=== PATIENT | male | born 1950 | race Caucasian/White ===

== ENCOUNTER 2017-10-20 13:47 | Inpatient (IN) | payer MEDICARE ==
[~2017-10-20] VITALS: Ht 180.3 cm; Wt 113.4 kg
--- NOTE | ~2017-10-20 | CN ---
PATIENT NAME:VALERIO ESPINAL MEDICAL RECORD: [id number] : 46 LOCATION:D[id number] ADMIT DATE: 10/20/17 ACCOUNT: [id number] CONSULTING PHYSICIAN: MAYKEL DUMONT MD REFERRING PHYSICIAN: YAZMIN NOYOLA MD DATE OF CONSULTATION: 10/24/2017 HISTORY OF PRESENT ILLNESS: A 67-year-old gentleman with history of atrial fibrillation, hypertension, admitted with a pelvic abscess status post drainage, has a history of atrial fibrillation, had recurrence of this postoperatively. We are asked to see him concerning his cardiovascular status. PAST MEDICAL HISTORY: Includes; 1. History of hypertension. 2. Atrial fibrillation. 3. BPH. 4. Dyslipidemia. 5. Anxiety with depression. ALLERGIES: CRESTOR, NIASPAN, AND LEVAQUIN. MEDICATIONS: Typically include omeprazole 20 mg p.o. q. day, Celexa 20 q. day, Betapace 80 b.i.d., atorvastatin 20 q. day, lisinopril 20 q. day, Flomax 0.4 q. day. SOCIAL HISTORY: He is a nonsmoker, nondrinker. Typically, he is able to take care of his ADLs. No set exercise program. REVIEW OF SYSTEMS: The patient reports easy bruising but reports no swollen glands. The patient reports no fever, no night sweats, no significant weight gain, no significant weight loss. No significant exercise tolerance. The patient reports no dry eyes, no irritation, no vision change. Patient reports no difficulty hearing and no ear pain. Patient reports no frequent nose bleeds or nose and sinus problems. Patient reports on arm pain on exertion. No shortness of breath while lying down. No history of heart murmur. Patient reports no cough, no wheezing or coughing up blood. Patient reports no abdominal pain, no vomiting. Normal appetite. No diarrhea and not vomiting blood. No nausea and no constipation. Patient reports no incontinence. No difficulty urinating. No hematuria. No increased frequency. Patient reports no muscle aches. No weakness, no arthralgias, no back pain. No swelling of the extremities. Patient reports no abnormal mole, no jaundice, no rashes. Reports no loss of consciousness. No weakness and no numbness. No seizures, dizziness, or headaches. The patient reports no depression, no sleep disturbance, feeling safe in a relationship and no alcohol abuse. Patient reports on fatigue. Reports no runny nose or sinus pressure. No itching, no hives, and no frequent sneezing. PHYSICAL EXAMINATION: GENERAL: Pleasant gentleman, in no acute distress. VITAL SIGNS: Blood pressure 130/86, pulse 135 and irregular. HEENT: Normocephalic, atraumatic. NECK: No bruits were noted. HEART: Showed regular rates around 110-120. II/ systolic ejection murmur. LUNGS: Good air excursion. ABDOMEN: Soft, nontender. CONSULT REPORT [id number] VALERIO ESPINAL EXTREMITIES: Pulses are well preserved. There is no edema. NEUROLOGIC: Grossly intact. DIAGNOSTIC DATA: ECG shows atrial fibrillation, no ST-T changes. IMPRESSION: Atrial fibrillation with RVR, not surprising given current infection. Postop, increased catecholamine drive, etc. We will add digoxin for assistance in rate control. Further recommendations based on clinical course. TRANSINT:[id number] Voice Confirmation ID: [id number] DOCUMENT ID: [id number] MAYKEL DUMONT MD at 1225 CC: [id number] DICTATION DATE: 10/24/17830 FINGERPRINT CLASSIFIER: 10/24/17 0943 ADM IN [place] [id number] [place] [address]
--- NOTE | ~2017-10-20 | OP ---
PATIENT NAME: VALERIO ESPINAL MEDICAL RECORD: [id number] :46 LOCATION:D[id number] ADMISSION DATE:10/20/17 SURGEON: ADDISON COSTELLO MD DATE OF OPERATION: 10/22/2017 PREOPERATIVE DIAGNOSIS: Deep intrapelvic abscess. POSTOPERATIVE DIAGNOSIS: Deep intrapelvic abscess. PROCEDURE: Excisional debridement of deep intrapelvic abscess. SURGEON: Addison Costello MD ANESTHESIA: Erick Mckenna MD INTRAOPERATIVE COMPLICATIONS: Essentially none. SUMMARY OF PATHOLOGIC FINDINGS: After deep retroperitoneal approach was done by Dr. Mckenna of general surgery, very small area of abscess and the area was seen just anterior and to the left of the sacral promontory, where it was noted to be on the patient's MRI. A drain was left in place. OPERATIVE SUMMARY IN DETAIL: After obtaining the appropriate preoperative orthopedic surgery consent as well as anesthetic consultation, evaluation, and clearance, the patient was brought to the operating room and placed on the operating table in supine position. After adequate general endotracheal anesthesia was administered, the entire lower abdomen and groin were prepped and draped in routine sterile fashion. Retroperitoneal approach was dissected by Dr. Mckenna of general surgery. Very carefully, this was taken down around to continue the retropelvic approach. Eventually, the sacral promontory was identified and as noted where the MRI was noted, there was some turbid appearing purulent fluid, where cultures were taken, and at this point, very gentle soft tissue dissection and irrigation was utilized. Very small curettage was utilized gently given the generalized area of the situation. Having completed this, substantial amounts of recurrent irrigation, the retroperitoneal closure was achieved with a drain tube in place. See separate dictation for details of the approach and closure. The wound was covered with sterile dressings. The patient was then awakened and taken to recovery room in stable condition. All final needle and sponge counts were correct. TRANSINT:[id number] Voice Confirmation ID: [id number] DOCUMENT ID: [id number] ADDISON COSTELLO MD at 1119 CC: [id number] DICTATION DATE: 11/27/17912 HUMAN RESOURCES MANAGER MANUFACTURING: 11/27/17 0955 DIS IN 10/31/17 [place] [address]
[2017-10-20] MEDS ORDERED: CELEXA20 MG PO (13:57)
[2017-10-20] MEDS ORDERED: LIPITOR20 MG PO (13:58)
[2017-10-20] MEDS ORDERED: PRINIVIL20 MG PO (13:58)
[2017-10-20] MEDS ORDERED: FLOMAX0.4 MG PO (13:58)
[2017-10-20] MEDS ORDERED: BETAPACE AF80 MG PO (13:58)
[2017-10-20 16:07] LABS: BASOPHILS 0.2 % (0-2); EOSINOPHILS 0.2 % (0-7); HEMATOCRIT 30.1 % (42.0-54.0); HEMOGLOBIN 10.2 g/dL (13.5-17.5); IMMATURE GRANULOCYTES 0.2 % (0-5); LYMPHOCYTES 11.5 % (15-50); MCH 30.6 pg (26.0-34.0); MCHC 33.9 g/dL (31.0-37.0); MCV 90.4 fL (80.0-100.0); MEAN PLATELET VOLUME 10.2 fL (7.4-10.4); MONOCYTES 11.3 % (2-11); NEUTROPHILS 76.6 % (40-80); PLATELET COUNT 123 10x3/uL (130-400); RBC 3.33 10x6/uL (4.20-6.10); WBC 5.3 10x3/uL (4.8-10.8)
[2017-10-20 16:21] LABS: ALBUMIN 2.3 g/dL (3.4-5.0); ALKALINE PHOSPHATASE 306 U/L (46-116); ALT (SGPT) 55 U/L (10-68); BILIRUBIN - TOTAL 0.95 mg/dL (0.2-1.3); CALC OSMOLALITY 271 mosm/kg (275-300); CARBON DIOXIDE 29.4 mmol/L (21.0-32.0); CHLORIDE - SERUM 101 mmol/L (98-107); CREATININE - SERUM 0.9 mg/dL (0.6-1.3); GLUCOSE 102 mg/dL (74-106); POTASSIUM - SERUM 3.8 mmol/L (3.5-5.1); PROTEIN - SERUM 7.5 g/dL (6.4-8.2); SODIUM 136 mmol/L (136-145); UREA NITROGEN 13 mg/dL (7-18); eGFR NON AFRICAN AMERICAN 89 mL/min (90-120)
[2017-10-20 16:33] LABS: C-REACTIVE PROTEIN 32.4 mg/dL (0.0-0.9)
[2017-10-20 19:52] LABS: ERYTHROCYTE SEDIMENTATION RATE 102 mm/hr (0-20)
[2017-10-20] MEDS ORDERED: OMEPRAZOLE20 M1 PO (23:13)
[2017-10-20 23:58] VITALS: BP 139/79
[2017-10-21 04:48] VITALS: BP 134/84
[2017-10-21 06:32] VITALS: BP 142/85; BMI 34.9
[2017-10-21 08:30] VITALS: BP 139/83
[2017-10-21 10:01] LABS: BASOPHILS 0.3 % (0-2); EOSINOPHILS 1.6 % (0-7); HEMATOCRIT 28.6 % (42.0-54.0); HEMOGLOBIN 9.4 g/dL (13.5-17.5); IMMATURE GRANULOCYTES 0.3 % (0-5); LYMPHOCYTES 19.9 % (15-50); MCH 30.1 pg (26.0-34.0); MCHC 32.9 g/dL (31.0-37.0); MCV 91.7 fL (80.0-100.0); MEAN PLATELET VOLUME 9.6 fL (7.4-10.4); MONOCYTES 15.1 % (2-11); NEUTROPHILS 62.8 % (40-80); PLATELET COUNT 107 10x3/uL (130-400); RBC 3.12 10x6/uL (4.20-6.10); RDW 14.4 % (11.5-14.5)
[2017-10-21 10:04] LABS: WBC 3.7 10x3/uL (4.8-10.8)
[2017-10-21 10:31] LABS: ALKALINE PHOSPHATASE 329 U/L (46-116); ALT (SGPT) 51 U/L (10-68); CALC OSMOLALITY 274 mosm/kg (275-300); CALCIUM 8.8 mg/dL (8.5-10.1); CHLORIDE - SERUM 103 mmol/L (98-107); CREATININE - SERUM 0.8 mg/dL (0.6-1.3); GLUCOSE 86 mg/dL (74-106); POTASSIUM - SERUM 3.8 mmol/L (3.5-5.1); PROTEIN - SERUM 6.8 g/dL (6.4-8.2); SODIUM 138 mmol/L (136-145); UREA NITROGEN 12 mg/dL (7-18); eGFR NON AFRICAN AMERICAN > 90 mL/min (90-120)
[2017-10-21 12:05] VITALS: BP 137/93
[2017-10-21 20:00] VITALS: BP 135/87
[2017-10-22] VITALS (10 sets, daily range): BP systolic 120–169; BP diastolic 65–94
[2017-10-22 05:25] LABS: BASOPHILS 0.4 % (0-2); EOSINOPHILS 1.5 % (0-7); HEMATOCRIT 28.8 % (42.0-54.0); HEMOGLOBIN 9.5 g/dL (13.5-17.5); IMMATURE GRANULOCYTES 0.2 % (0-5); LYMPHOCYTES 14.6 % (15-50); MCH 30.4 pg (26.0-34.0); MEAN PLATELET VOLUME 10.2 fL (7.4-10.4); MONOCYTES 13.1 % (2-11); NEUTROPHILS 70.2 % (40-80); PLATELET COUNT 127 10x3/uL (130-400); RBC 3.13 10x6/uL (4.20-6.10); RDW 14.6 % (11.5-14.5)
[2017-10-22 05:27] LABS: WBC 5.4 10x3/uL (4.8-10.8)
[2017-10-22 05:45] LABS: ALKALINE PHOSPHATASE 397 U/L (46-116); ALT (SGPT) 53 U/L (10-68); BILIRUBIN - TOTAL 0.88 mg/dL (0.2-1.3); CALC OSMOLALITY 266 mosm/kg (275-300); CALCIUM 8.6 mg/dL (8.5-10.1); CARBON DIOXIDE 27.5 mmol/L (21.0-32.0); CHLORIDE - SERUM 100 mmol/L (98-107); CREATININE - SERUM 0.9 mg/dL (0.6-1.3); GLUCOSE 89 mg/dL (74-106); POTASSIUM - SERUM 3.9 mmol/L (3.5-5.1); PROTEIN - SERUM 6.7 g/dL (6.4-8.2); SODIUM 134 mmol/L (136-145); UREA NITROGEN 12 mg/dL (7-18); eGFR NON AFRICAN AMERICAN 89 mL/min (90-120)
[2017-10-23] VITALS (9 sets, daily range): BP systolic 121–155; BP diastolic 69–100
[2017-10-23 00:04] LABS: HEMATOCRIT 27.4 % (42.0-54.0); HEMOGLOBIN 9.3 g/dL (13.5-17.5); LYMPHOCYTES 11.9 % (15-50); MCH 30.5 pg (26.0-34.0); MCHC 33.9 g/dL (31.0-37.0); MEAN PLATELET VOLUME 9.1 fL (7.4-10.4); NEUTROPHILS 76.5 % (40-80); PLATELET COUNT 129 10x3/uL (130-400); RBC 3.05 10x6/uL (4.20-6.10); RDW 14.3 % (11.5-14.5); WBC 5.4 10x3/uL (4.8-10.8)
[2017-10-23 00:06] LABS: MCV 89.8 fL (80.0-100.0)
[2017-10-23 00:23] LABS: ALKALINE PHOSPHATASE 413 U/L (46-116); ALT (SGPT) 45 U/L (10-68); BILIRUBIN - TOTAL 1.09 mg/dL (0.2-1.3); CALC OSMOLALITY 271 mosm/kg (275-300); CALCIUM 8.4 mg/dL (8.5-10.1); CARBON DIOXIDE 28.9 mmol/L (21.0-32.0); CHLORIDE - SERUM 101 mmol/L (98-107); CREATININE - SERUM 0.8 mg/dL (0.6-1.3); GLUCOSE 98 mg/dL (74-106); POTASSIUM - SERUM 3.9 mmol/L (3.5-5.1); PROTEIN - SERUM 6.6 g/dL (6.4-8.2); SODIUM 136 mmol/L (136-145); UREA NITROGEN 13 mg/dL (7-18); eGFR NON AFRICAN AMERICAN > 90 mL/min (90-120)
[2017-10-23 05:34] LABS: BASOPHILS 0.2 % (0-2); EOSINOPHILS 0.9 % (0-7); HEMATOCRIT 29.4 % (42.0-54.0); HEMOGLOBIN 9.7 g/dL (13.5-17.5); IMMATURE GRANULOCYTES 0.4 % (0-5); LYMPHOCYTES 11.1 % (15-50); MCH 30.2 pg (26.0-34.0); MCV 91.6 fL (80.0-100.0); MEAN PLATELET VOLUME 9.7 fL (7.4-10.4); MONOCYTES 12.2 % (2-11); NEUTROPHILS 75.2 % (40-80); PLATELET COUNT 141 10x3/uL (130-400); RBC 3.21 10x6/uL (4.20-6.10); RDW 14.3 % (11.5-14.5); WBC 5.6 10x3/uL (4.8-10.8)
[2017-10-23 06:12] LABS: ALKALINE PHOSPHATASE 412 U/L (46-116); ALT (SGPT) 46 U/L (10-68); BILIRUBIN - TOTAL 1.18 mg/dL (0.2-1.3); CALC OSMOLALITY 271 mosm/kg (275-300); CALCIUM 8.5 mg/dL (8.5-10.1); CARBON DIOXIDE 28.1 mmol/L (21.0-32.0); CHLORIDE - SERUM 101 mmol/L (98-107); CREATININE - SERUM 0.9 mg/dL (0.6-1.3); GLUCOSE 91 mg/dL (74-106); POTASSIUM - SERUM 3.9 mmol/L (3.5-5.1); PROTEIN - SERUM 6.7 g/dL (6.4-8.2); SODIUM 136 mmol/L (136-145); UREA NITROGEN 12 mg/dL (7-18); eGFR NON AFRICAN AMERICAN 89 mL/min (90-120)
[2017-10-23 09:56] LABS: HEMATOCRIT 29.2 % (42.0-54.0); HEMOGLOBIN 9.8 g/dL (13.5-17.5)
[2017-10-24 04:07] VITALS: BP 140/88
[2017-10-24 05:25] LABS: BASOPHILS 0.1 % (0-2); EOSINOPHILS 1.9 % (0-7); HEMATOCRIT 29.1 % (42.0-54.0); HEMOGLOBIN 9.7 g/dL (13.5-17.5); IMMATURE GRANULOCYTES 0.6 % (0-5); LYMPHOCYTES 10.6 % (15-50); MCH 30.6 pg (26.0-34.0); MCHC 33.3 g/dL (31.0-37.0); MCV 91.8 fL (80.0-100.0); MEAN PLATELET VOLUME 10.1 fL (7.4-10.4); MONOCYTES 13.5 % (2-11); NEUTROPHILS 73.3 % (40-80); RBC 3.17 10x6/uL (4.20-6.10); RDW 14.5 % (11.5-14.5)
[2017-10-24 05:27] LABS: PLATELET COUNT 189 10x3/uL (130-400)
[2017-10-24 05:35] LABS: ALKALINE PHOSPHATASE 407 U/L (46-116); ALT (SGPT) 42 U/L (10-68); BILIRUBIN - TOTAL 1.34 mg/dL (0.2-1.3); CALC OSMOLALITY 272 mosm/kg (275-300); CALCIUM 8.3 mg/dL (8.5-10.1); CARBON DIOXIDE 29.3 mmol/L (21.0-32.0); CHLORIDE - SERUM 101 mmol/L (98-107); CREATININE - SERUM 0.8 mg/dL (0.6-1.3); GLUCOSE 95 mg/dL (74-106); POTASSIUM - SERUM 3.4 mmol/L (3.5-5.1); PROTEIN - SERUM 6.9 g/dL (6.4-8.2); SODIUM 137 mmol/L (136-145); UREA NITROGEN 9 mg/dL (7-18); eGFR NON AFRICAN AMERICAN > 90 mL/min (90-120)
[2017-10-24 08:10] VITALS: BP 130/86
[2017-10-24 12:34] VITALS: BP 127/90
[2017-10-24 16:15] VITALS: BP 113/68
[2017-10-24 17:48] LABS: ERYTHROCYTE SEDIMENTATION RATE 89 mm/hr (0-20)
[2017-10-24 20:00] VITALS: BP 98/58
[2017-10-25] VITALS: BP 107/73
[2017-10-25 04:00] VITALS: BP 131/79
[2017-10-25 06:38] LABS: BASOPHILS 0.3 % (0-2); EOSINOPHILS 2.3 % (0-7); HEMATOCRIT 28.4 % (42.0-54.0); HEMOGLOBIN 9.4 g/dL (13.5-17.5); IMMATURE GRANULOCYTES 0.5 % (0-5); LYMPHOCYTES 13.2 % (15-50); MCH 30.1 pg (26.0-34.0); MCHC 33.1 g/dL (31.0-37.0); MEAN PLATELET VOLUME 9.9 fL (7.4-10.4); NEUTROPHILS 71.7 % (40-80); PLATELET COUNT 216 10x3/uL (130-400); RBC 3.12 10x6/uL (4.20-6.10); RDW 14.5 % (11.5-14.5); WBC 7.4 10x3/uL (4.8-10.8)
[2017-10-25 07:05] LABS: ALKALINE PHOSPHATASE 383 U/L (46-116); ALT (SGPT) 39 U/L (10-68); BILIRUBIN - TOTAL 0.91 mg/dL (0.2-1.3); CALC OSMOLALITY 272 mosm/kg (275-300); CALCIUM 8.1 mg/dL (8.5-10.1); CARBON DIOXIDE 25.8 mmol/L (21.0-32.0); CHLORIDE - SERUM 99 mmol/L (98-107); CREATININE - SERUM 0.9 mg/dL (0.6-1.3); GLUCOSE 91 mg/dL (74-106); POTASSIUM - SERUM 3.4 mmol/L (3.5-5.1); PROTEIN - SERUM 6.9 g/dL (6.4-8.2); SODIUM 136 mmol/L (136-145); eGFR NON AFRICAN AMERICAN 89 mL/min (90-120)
[2017-10-25 07:06] LABS: UREA NITROGEN 14 mg/dL (7-18)
[2017-10-25 08:49] VITALS: BP 125/74
[2017-10-25 12:21] VITALS: BP 103/66
[2017-10-25 17:09] VITALS: BP 138/84
[2017-10-25 20:00] VITALS: BP 129/96
[2017-10-26] VITALS (7 sets, daily range): BP systolic 106–165; BP diastolic 64–97
[2017-10-26 04:54] LABS: BASOPHILS 0.2 % (0-2); EOSINOPHILS 0.8 % (0-7); HEMATOCRIT 28.8 % (42.0-54.0); HEMOGLOBIN 9.7 g/dL (13.5-17.5); IMMATURE GRANULOCYTES 0.8 % (0-5); MCH 30.3 pg (26.0-34.0); MCHC 33.7 g/dL (31.0-37.0); MEAN PLATELET VOLUME 9.2 fL (7.4-10.4); NEUTROPHILS 79.2 % (40-80); PLATELET COUNT 223 10x3/uL (130-400); RDW 14.3 % (11.5-14.5); WBC 6.4 10x3/uL (4.8-10.8)
[2017-10-26 05:27] LABS: ALBUMIN 1.8 g/dL (3.4-5.0); ALKALINE PHOSPHATASE 325 U/L (46-116); ALT (SGPT) 37 U/L (10-68); BILIRUBIN - TOTAL 0.83 mg/dL (0.2-1.3); CALC OSMOLALITY 272 mosm/kg (275-300); CALCIUM 8.2 mg/dL (8.5-10.1); CHLORIDE - SERUM 102 mmol/L (98-107); CREATININE - SERUM 0.9 mg/dL (0.6-1.3); GLUCOSE 104 mg/dL (74-106); POTASSIUM - SERUM 3.5 mmol/L (3.5-5.1); PROTEIN - SERUM 6.7 g/dL (6.4-8.2); SODIUM 137 mmol/L (136-145); eGFR NON AFRICAN AMERICAN 89 mL/min (90-120)
[2017-10-26 05:30] LABS: UREA NITROGEN 10 mg/dL (7-18)
[2017-10-27 05:32] LABS: BASOPHILS 0.2 % (0-2); EOSINOPHILS 0.9 % (0-7); HEMATOCRIT 28.3 % (42.0-54.0); HEMOGLOBIN 9.4 g/dL (13.5-17.5); IMMATURE GRANULOCYTES 1.1 % (0-5); LYMPHOCYTES 13.8 % (15-50); MCH 29.8 pg (26.0-34.0); MCHC 33.2 g/dL (31.0-37.0); MCV 89.8 fL (80.0-100.0); MEAN PLATELET VOLUME 9.4 fL (7.4-10.4); MONOCYTES 10.6 % (2-11); NEUTROPHILS 73.4 % (40-80); PLATELET COUNT 228 10x3/uL (130-400); RBC 3.15 10x6/uL (4.20-6.10); RDW 14.7 % (11.5-14.5); WBC 5.3 10x3/uL (4.8-10.8)
[2017-10-27 05:44] VITALS: BP 149/92
[2017-10-27 06:01] LABS: ALBUMIN 1.9 g/dL (3.4-5.0); ALKALINE PHOSPHATASE 295 U/L (46-116); ALT (SGPT) 38 U/L (10-68); BILIRUBIN - TOTAL 0.64 mg/dL (0.2-1.3); C-REACTIVE PROTEIN 7.5 mg/dL (0.0-0.9); CALC OSMOLALITY 274 mosm/kg (275-300); CARBON DIOXIDE 25.3 mmol/L (21.0-32.0); CHLORIDE - SERUM 103 mmol/L (98-107); CREATININE - SERUM 0.8 mg/dL (0.6-1.3); GLUCOSE 101 mg/dL (74-106); PROTEIN - SERUM 6.3 g/dL (6.4-8.2); SODIUM 138 mmol/L (136-145); UREA NITROGEN 10 mg/dL (7-18); eGFR NON AFRICAN AMERICAN > 90 mL/min (90-120)
[2017-10-27 06:51] LABS: ERYTHROCYTE SEDIMENTATION RATE 108 mm/hr (0-20)
[2017-10-27 09:53] VITALS: BP 153/94
[2017-10-27 12:40] VITALS: BP 151/98
[2017-10-27 15:24] VITALS: Ht 180.3 cm; Wt 113.4 kg
[2017-10-27 16:45] VITALS: BP 155/95
[2017-10-27 19:28] VITALS: BP 142/77
[2017-10-28 00:51] VITALS: BP 136/72
[2017-10-28 04:28] VITALS: BP 148/87
[2017-10-28 05:16] LABS: BASOPHILS 0.3 % (0-2); EOSINOPHILS 1.2 % (0-7); HEMATOCRIT 30.6 % (42.0-54.0); HEMOGLOBIN 10.4 g/dL (13.5-17.5); IMMATURE GRANULOCYTES 1.6 % (0-5); LYMPHOCYTES 12.8 % (15-50); MCH 30.5 pg (26.0-34.0); MCV 89.7 fL (80.0-100.0); MEAN PLATELET VOLUME 9.4 fL (7.4-10.4); MONOCYTES 10.7 % (2-11); NEUTROPHILS 73.4 % (40-80); PLATELET COUNT 268 10x3/uL (130-400); RBC 3.41 10x6/uL (4.20-6.10); RDW 14.6 % (11.5-14.5)
[2017-10-28 05:24] LABS: WBC 7.5 10x3/uL (4.8-10.8)
[2017-10-28 06:02] LABS: ALBUMIN 2.1 g/dL (3.4-5.0); ALKALINE PHOSPHATASE 299 U/L (46-116); BILIRUBIN - TOTAL 0.65 mg/dL (0.2-1.3); CALC OSMOLALITY 270 mosm/kg (275-300); CALCIUM 8.2 mg/dL (8.5-10.1); CARBON DIOXIDE 23.3 mmol/L (21.0-32.0); CHLORIDE - SERUM 103 mmol/L (98-107); CREATININE - SERUM 0.9 mg/dL (0.6-1.3); GLUCOSE 94 mg/dL (74-106); POTASSIUM - SERUM 3.3 mmol/L (3.5-5.1); PROTEIN - SERUM 6.8 g/dL (6.4-8.2); SODIUM 136 mmol/L (136-145); UREA NITROGEN 10 mg/dL (7-18); eGFR NON AFRICAN AMERICAN 89 mL/min (90-120)
[2017-10-28 06:10] LABS: ALT (SGPT) 55 U/L (10-68)
[2017-10-28 08:37] VITALS: BP 164/99
[2017-10-28 12:45] VITALS: BP 158/110
[2017-10-28 19:51] VITALS: BP 148/106
[2017-10-29] VITALS (7 sets, daily range): BP systolic 132–170; BP diastolic 83–110
[2017-10-29 06:11] LABS: BASOPHILS 0.3 % (0-2); EOSINOPHILS 2.2 % (0-7); HEMOGLOBIN 9.5 g/dL (13.5-17.5); IMMATURE GRANULOCYTES 1.3 % (0-5); LYMPHOCYTES 13.8 % (15-50); MCH 29.4 pg (26.0-34.0); MCHC 32.8 g/dL (31.0-37.0); MCV 89.8 fL (80.0-100.0); MEAN PLATELET VOLUME 9.1 fL (7.4-10.4); MONOCYTES 11.3 % (2-11); NEUTROPHILS 71.1 % (40-80); PLATELET COUNT 216 10x3/uL (130-400); RBC 3.23 10x6/uL (4.20-6.10); RDW 14.9 % (11.5-14.5); WBC 5.9 10x3/uL (4.8-10.8)
[2017-10-29 06:51] LABS: ALKALINE PHOSPHATASE 243 U/L (46-116); ALT (SGPT) 49 U/L (10-68); BILIRUBIN - TOTAL 0.61 mg/dL (0.2-1.3); CALCIUM 8.1 mg/dL (8.5-10.1); CARBON DIOXIDE 24.3 mmol/L (21.0-32.0); CHLORIDE - SERUM 104 mmol/L (98-107); CREATININE - SERUM 0.9 mg/dL (0.6-1.3); GLUCOSE 85 mg/dL (74-106); PROTEIN - SERUM 6.2 g/dL (6.4-8.2); SODIUM 137 mmol/L (136-145); eGFR NON AFRICAN AMERICAN 89 mL/min (90-120)
[2017-10-29 06:53] LABS: CALC OSMOLALITY 270 mosm/kg (275-300); POTASSIUM - SERUM 2.9 mmol/L (3.5-5.1); UREA NITROGEN 7 mg/dL (7-18)
[2017-10-29 15:02] LABS: ERYTHROCYTE SEDIMENTATION RATE 52 mm/hr (0-20)
[2017-10-30 04:16] VITALS: BP 177/96
[2017-10-30 05:47] LABS: BASOPHILS 0.5 % (0-2); HEMATOCRIT 29.7 % (42.0-54.0); HEMOGLOBIN 9.8 g/dL (13.5-17.5); IMMATURE GRANULOCYTES 1.1 % (0-5); MCH 29.5 pg (26.0-34.0); MCV 89.5 fL (80.0-100.0); MEAN PLATELET VOLUME 9.1 fL (7.4-10.4); MONOCYTES 9.8 % (2-11); NEUTROPHILS 76.6 % (40-80); PLATELET COUNT 201 10x3/uL (130-400); RBC 3.32 10x6/uL (4.20-6.10); WBC 6.1 10x3/uL (4.8-10.8)
[2017-10-30 06:32] LABS: ALBUMIN 2.2 g/dL (3.4-5.0); ALKALINE PHOSPHATASE 226 U/L (46-116); ALT (SGPT) 50 U/L (10-68); BILIRUBIN - TOTAL 0.66 mg/dL (0.2-1.3); CALC OSMOLALITY 275 mosm/kg (275-300); CALCIUM 8.7 mg/dL (8.5-10.1); CARBON DIOXIDE 24.2 mmol/L (21.0-32.0); CHLORIDE - SERUM 106 mmol/L (98-107); GLUCOSE 94 mg/dL (74-106); POTASSIUM - SERUM 3.3 mmol/L (3.5-5.1); PROTEIN - SERUM 6.6 g/dL (6.4-8.2); SODIUM 139 mmol/L (136-145); UREA NITROGEN 6 mg/dL (7-18); eGFR NON AFRICAN AMERICAN 79 mL/min (90-120)
[2017-10-30 07:47] VITALS: BP 168/102
[2017-10-30 12:13] VITALS: BP 150/91
[2017-10-30 15:58] VITALS: BP 148/91
[2017-10-30 20:06] VITALS: BP 145/89
[2017-10-30 23:21] VITALS: BP 162/91
[2017-10-31 04:43] VITALS: BP 150/98
[2017-10-31 05:38] LABS: BASOPHILS 0.4 % (0-2); EOSINOPHILS 2.5 % (0-7); HEMATOCRIT 29.2 % (42.0-54.0); HEMOGLOBIN 9.7 g/dL (13.5-17.5); IMMATURE GRANULOCYTES 1.1 % (0-5); LYMPHOCYTES 10.9 % (15-50); MCH 29.7 pg (26.0-34.0); MCHC 33.2 g/dL (31.0-37.0); MCV 89.3 fL (80.0-100.0); MEAN PLATELET VOLUME 9.2 fL (7.4-10.4); MONOCYTES 10.5 % (2-11); NEUTROPHILS 74.6 % (40-80); PLATELET COUNT 181 10x3/uL (130-400); RBC 3.27 10x6/uL (4.20-6.10); RDW 15.2 % (11.5-14.5); WBC 5.3 10x3/uL (4.8-10.8)
[2017-10-31 05:55] LABS: ALBUMIN 2.1 g/dL (3.4-5.0); ALKALINE PHOSPHATASE 205 U/L (46-116); ALT (SGPT) 41 U/L (10-68); CALC OSMOLALITY 274 mosm/kg (275-300); CALCIUM 8.6 mg/dL (8.5-10.1); CARBON DIOXIDE 24.5 mmol/L (21.0-32.0); CHLORIDE - SERUM 106 mmol/L (98-107); GLUCOSE 96 mg/dL (74-106); POTASSIUM - SERUM 3.2 mmol/L (3.5-5.1); PROTEIN - SERUM 6.3 g/dL (6.4-8.2); SODIUM 139 mmol/L (136-145); UREA NITROGEN 5 mg/dL (7-18); eGFR NON AFRICAN AMERICAN 79 mL/min (90-120)
[2017-10-31 09:20] VITALS: BP 155/95
[2017-10-31] MEDS ORDERED: ZOSYN 3.3753.375 G1 IV (13:21)
[2017-10-31] MEDS ORDERED: MIRALAX17 GM PO (13:21)
[2017-10-31] MEDS ORDERED: PROTONIX40 MG PO (13:22)
[2017-10-31] MEDS ORDERED: XOPENEX 1.1.25 MG/3 UPD (13:23)
[2017-10-31] MEDS ORDERED: LOVENOX30 MG/0.3 SC (13:23)
[2017-10-31] MEDS ORDERED: CARDIZEM CD180 MG PO (13:23)
[2017-10-31] MEDS ORDERED: BETAPACE 120 M120 MG PO (13:24)
[2017-10-31] MEDS ORDERED: LANOXIN250 MCG PO (13:24)
[2017-10-31] MEDS ORDERED: VANCOMYCIN 1 GM/1 G1 IV (13:25)
[2017-10-31 14:38] VITALS: BP 161/106
== END 2017-10-31 16:02 | disposition short-term general hospital (02) | DRG 500 ==
LOC: D.ER 13:47 → D.EDHOLD 19:26 → D.MS 19:26
PROVIDERS: Family Medicine; Internal Medicine Nephrology; Orthopaedic Surgery; Surgery
PROC: 0S9B3ZZ Drainage of Left Hip Joint, Percutaneous Approach (ICD-10-PCS; principal; 2017-10-21)
PROC: 0J9C0ZZ Drainage of Pelvic Region Subcutaneous Tissue and Fascia, Open Approach (ICD-10-PCS; 2017-10-22)
PROC: 02HV33Z Insertion of Infusion Device into Superior Vena Cava, Percutaneous Approach (ICD-10-PCS; 2017-10-31)
PROC: B548ZZA Ultrasonography of Superior Vena Cava, Guidance (ICD-10-PCS; 2017-10-31)
DX: M00.9 Pyogenic arthritis, unspecified (principal); K65.1 Peritoneal abscess; C18.9 Malignant neoplasm of colon, unspecified; F05 Delirium due to known physiological condition; B37.0 Candidal stomatitis; F41.8 Other specified anxiety disorders; I10 Essential (primary) hypertension; I48.91 Unspecified atrial fibrillation; E87.6 Hypokalemia; R00.0 Tachycardia, unspecified

== ENCOUNTER → 2018-08-06 13:38 | Outpatient (CLI) | payer MEDICARE ==
[~2018-08-06 13:38] MED LIST: BETAPACE 120 M120 MG PO; BETAPACE AF80 MG PO; CARDIZEM CD180 MG PO; CELEXA20 MG PO; FLOMAX0.4 MG PO; LANOXIN250 MCG PO; LIPITOR20 MG PO; LOVENOX30 MG/0.3 SC; MIRALAX17 GM PO; OMEPRAZOLE20 M1 PO; PRINIVIL20 MG PO; PROTONIX40 MG PO; VANCOMYCIN 1 GM/1 G1 IV; XOPENEX 1.1.25 MG/3 UPD; ZOSYN 3.3753.375 G1 IV
== END | disposition home or self-care (01) ==
LOC: D.HCCARDIO 13:38
DX: I34.0 Nonrheumatic mitral (valve) insufficiency (principal)

== ENCOUNTER → 2018-12-10 14:25 | Outpatient (CLI) | payer MEDICARE ==
[2017-10-27 15:24] VITALS: BMI 34.8
[2018-12-11 07:14] LABS: IMMUNOGLOBULIN A 364 mg/dL (61-437); IMMUNOGLOBULIN G 1041 mg/dL (700-1600); IMMUNOGLOBULIN M 61 mg/dL (20-172)
[2018-12-11 12:10] LABS: ANA REFLEX - DIRECT Negative (Negative)
[2018-12-14 13:09] LABS: IMMUNOGLOBULIN E 37 IU/mL (6-495)
== END | disposition home or self-care (01) ==
LOC: D.RT 14:25
PROVIDERS: ATTEND Internal Medicine Pulmonary Disease
DX: R06.00 Dyspnea, unspecified (principal)

== ENCOUNTER → 2019-08-25 08:46 | Outpatient (CLI) | payer MEDICARE ==
[2017-10-27 15:24] VITALS: BMI 34.8
== END | disposition home or self-care (01) ==
LOC: D.HCCECHO 08:46
PROVIDERS: ATTEND Internal Medicine Cardiovascular Disease
DX: I10 Essential (primary) hypertension (principal)

== ENCOUNTER 2019-11-25 08:00 | Day surgery (SDC) | payer MEDICARE ==
[2019-11-23 11:51] LABS: BASOPHILS 0.7 % (0-2); EOSINOPHILS 2.9 % (0-7); HEMATOCRIT 42.3 % (42.0-54.0); HEMOGLOBIN 14.4 g/dL (13.5-17.5); IMMATURE GRANULOCYTES 0.2 % (0-5); LYMPHOCYTES 22.8 % (15-50); MCH 31.7 pg (26.0-34.0); MCV 93.2 fL (80.0-100.0); MEAN PLATELET VOLUME 10.1 fL (7.4-10.4); MONOCYTES 9.1 % (2-11); NEUTROPHILS 64.3 % (40-80); RBC 4.54 10x6/uL (4.20-6.10); RDW 15.9 % (11.5-14.5); WBC 5.5 10x3/uL (4.8-10.8)
[2019-11-23 11:54] LABS: PLATELET COUNT 88 10x3/uL (130-400)
[2019-11-23 11:55] LABS: ANION GAP 13.3 mmol/L (8-16); CALCIUM 8.8 mg/dL (8.5-10.1); CARBON DIOXIDE 26.5 mmol/L (21.0-32.0); CREATININE - SERUM 1.1 mg/dL (0.6-1.3); POTASSIUM - SERUM 3.8 mmol/L (3.5-5.1)
[2019-11-23 12:02] LABS: APTT 35.9 SECONDS (22.8-39.4); INR 1.25 (0.85-1.17); PROTIME 15.6 SECONDS (11.6-15.0)
[~2019-11-25] VITALS: Ht 177.8 cm; Wt 113.4 kg
[~2019-11-25 08:00] MED LIST changes: +CENTRUM MEN'S1 EACH PO; +CO Q-1030 MG PO; +FISH OIL 1,0001 CA1 PO; +FUROSEMIDE20 MG PO; +HYDRALAZINE HCL25 MG PO; +K-TAB10 MEQ PO; +OSTEO BI-FLEX1 EAC1 PO
[2019-11-25] MEDS ORDERED: INDERAL 40 MG T40 MG PO (08:24)
[2019-11-25 08:27] VITALS: BP 130/81; Ht 177.8 cm; Wt 113.4 kg
[2019-11-25] MEDS ORDERED: HYDROCODON-ACE1 EA10 PO (09:56)
--- NOTE | 2019-11-25 13:44 | NUR ---
1145 RATES PAIN 3. DENIES C/O. IV D/C'D WITH CANNULA INTACT, DISCHARGE INSTRUCTIONS GIVEN TO PT AND . VERBALIZED AN UNDERSTANDING
--- NOTE | 2019-11-26 08:05 | OP ---
PATIENT NAME: VALERIO ESPINAL MEDICAL RECORD: [id number] :46 LOCATION:D.OPS ADMISSION DATE: SURGEON: ADDISON COSTELLO MD DATE OF OPERATION: 11/25/2019 PREOPERATIVE DIAGNOSES: 1. Medial meniscus tear of the left knee. 2. Lateral meniscus tear of the left knee. POSTOPERATIVE DIAGNOSES: 1. Medial meniscus tear of the left knee. 2. Lateral meniscus tear of the left knee. PROCEDURES: 1. Arthroscopic partial medial meniscectomy of the left knee. 2. Arthroscopic partial lateral meniscectomy of the left knee. SURGEON: Addison Costello MD FURNACE MECHANIC HELPER: COLLEEN Chisholm INTRAOPERATIVE COMPLICATIONS: None. SUMMARY OF PATHOLOGIC FINDINGS: The patient did have a small radial beak type tear of the medial meniscus. He had a very complex tear of the posterior horn of the lateral meniscus all the way from the medial side of the popliteal hiatus out to lateral to this requiring near subtotal lateral meniscectomy. Medial and lateral femoral condyle had at best grade II chondromalacia, but all in all looked very good. OPERATIVE SUMMARY IN DETAIL: After obtaining the appropriate preoperative orthopedic surgery consent as well as anesthetic consultation, evaluation and clearance, the patient was brought to the operating room and placed on the operating table in supine position. After general laryngeal mask was administered, tourniquet was placed about the proximal aspect of left lower extremity. Left lower extremity was then prepped and draped in routine sterile fashion. The leg was elevated and exsanguinated, tourniquet was inflated to 350 mmHg. Routine inferolateral portion was established followed by superomedial portal and inferomedial portal. Diagnostic arthroscopy did reveal the above findings. Attention was first turned to the medial meniscus. Combination of meniscotome as well as resectors were utilized to debride the medial meniscus back to stable meniscal elements. Having completed this, the knee was placed in a [id number] position and in the gegbbh-wn-prpr position again a combination of meniscal resector as well as the arthroscopic resector was utilized to debride the lateral meniscus back to stable lateral meniscus elements. Anterior lateral horn was in good place and most of the posterior and posterior-medial horns had to be debrided because of the complicated tear. Having completed this, the knee was insufflated with 80 mg of Depo-Medrol with 30 cc of 0.25% Marcaine plain. Arthroscopy portals were closed in routine interrupted fashion using 4-0 Prolene by COLLEEN Chisholm. Sterile dressings were applied. The patient was awakened and taken to recovery room in stable condition. All final needle and sponge counts were correct. TRANSINT:[id number] Voice Confirmation ID: [id number] DOCUMENT ID: [id number] OPERATIVE REPORT [id number] VALERIO ESPINAL MD, ADDISON GRIER at 0805 CC: [id number] DICTATION DATE: 11/25/19 1330 LINE MANAGER: 11/25/19 1637 [facility] [place] 11/25/19 [facility] [address] [place] [address]
== END 2019-11-25 11:45 | disposition home or self-care (01) ==
LOC: D.OPS 08:00 → D.PAN 14:45 → D.OPS 14:45
PROVIDERS: Anesthesiology; ATTEND Orthopaedic Surgery
DX: S83.242A Other tear of medial meniscus, current injury, left knee, initial encounter (principal); S83.282A Other tear of lateral meniscus, current injury, left knee, initial encounter; X58.XXXA Exposure to other specified factors, initial encounter